=== PATIENT | male | born 1955 | race Caucasian/White ===

== ENCOUNTER → 2018-07-03 | Outpatient (CLI) | payer BC ==
[~2018-07-03] MED LIST: ATOR20TA58 PO; CELE100C PO; CETI10TA22 PO; GADOBUTROL 7.5 MMOL/7.5 ML VIAL IV ONE; HYDR-2761 PO; LISI-334 PO; SERT25TA PO
--- NOTE | 2018-07-03 16:52 | KCIC ---
EXAM: Brain MRI with and without contrast. HISTORY: Dizziness. TECHNIQUE: Multiplanar, multisequence magnetic resonance imaging of the brain was performed prior to and following the administration of 12 cc Gadavist intravenous contrast. COMPARISON: None. FINDINGS: There is no restricted diffusion to suggest acute or subacute infarction. There is no susceptibility effect to suggest hemorrhage. There is no mass effect or midline shift. There is no hydrocephalus. There are nonspecific areas of T2/FLAIR hyperintensity within the cerebral white matter and nickolas, most commonly due to chronic small vessel disease. There is mild cerebral volume loss. The orbits are unremarkable. There is a tiny right maxillary sinus mucous retention cyst. The mastoid air cells are clear. There are normal flow voids within the cerebral vessels. No calvarial lesion is seen. The cerebellopontine angles, internal auditory canals, membranous labyrinths, vestibulocochlear nerves and facial nerves are unremarkable. The trigeminal nerve complexes are unremarkable. The bilateral anterior inferior cerebellar arteries course within the internal auditory canals, a normal variant. No suspicious enhancing lesion is seen. IMPRESSION: 1. No acute intracranial finding. 2. Nonspecific signal change within the cerebral white matter and nickolas, most commonly due to chronic small vessel disease. 3. Mild cerebral volume loss. Electronically signed by: Ana López MD (07/03/2018 4:49 PM) [id number]
== END | disposition home or self-care (01) ==
LOC: KCIC MRI 14:40
PROVIDERS: ATTEND Otolaryngology
DX: G45.9 Transient cerebral ischemic attack, unspecified (principal); J34.1 Cyst and mucocele of nose and nasal sinus; R90.82 White matter disease, unspecified
CPT/HCPCS: 70553; A9585